=== PATIENT | male | born 1965 | race Caucasian/White ===

== ENCOUNTER → 2021-05-20 15:44 | Outpatient (CLI) | payer OTHER, SELFPAY ==
--- NOTE | ~2021-05-20 | XR_ITS ---
EXAMINATION: XR wrist RT min 3V DATE: 05/20/2021 16:02 INDICATION: Right wrist pain. TECHNIQUE: 4 views of right wrist were obtained. COMPARISON: None. FINDINGS: Bone alignment is normal. No fracture. There is mild osteoarthritis of first metacarpophala ngeal joint. IMPRESSION: 1. Mild osteoarthritis of first metacarpophalangeal joint. Reviewed, dictated and finalized at location A.
== END ==
PROVIDERS: PCP Physician Assistant; Visit Provider Physician Assistant
DX: M19.031 Primary osteoarthritis, right wrist (principal)
CPT/HCPCS: 73110

== ENCOUNTER 2021-06-07 12:41 | Outpatient (CLI) | payer OTHER, SELFPAY ==
--- NOTE | ~2021-06-07 | XR_ITS ---
XR cervical spine 4-5V DATE: 06/07/2021 13:04 INDICATION: Neck pain. Dizziness. Giddiness. TECHNIQUE: AP, open-mouth, lateral and swimmer views COMPARISON: None FINDINGS: C1 and C2 are normally aligned and the odontoid process is intact. No fracture or dislocati on or locked facet or prevertebral soft tissue swelling. There is mild degenerative disc disease at C5-6, moderate degenerative disc disease at C6-7. There is mild uncovertebral joint spurring at C3-4, C4-5, C5-6 and C6-7. IMPRESSION: Mild cervical spondylosis Reviewed, dictated and finalized at location A. IMPRESSION: Mild cervical spondylosis
--- NOTE | ~2021-06-07 | US_ITS ---
EXAMINATION: US carotid duplex BI DATE: 06/07/2021 13:23 INDICATION: Dizziness and giddiness TECHNIQUE: Grayscale, color Doppler, and pulsed Doppler images of the cervical carotid arteries were obtained. The degree of vessel stenosis is placed in one of the following categories: normal, <50%, 5 0-69%, >=70% but less than near-occlusion, near-occlusion, or total occlusion. Note that percent sten osis relative to normal distal artery lumen diameter is indirectly measured from velocity measurement s as described by Gagan, et al. Radiology 2003; [id number]. COMPARISON: None. FINDINGS: RIGHT: The right common carotid artery (CCA) peak systolic velocity (PSV) is 158 cm/s. The right internal ca rotid artery (ICA) PSV is 65 cm/s. The right ICA end-diastolic velocity (EDV) is 14 cm/s. The right I CA/CCA PSV ratio is 0.4. Grayscale and color Doppler images demonstrate no evident stenosis or plaque in the ICA. The external carotid artery (ECA) PSV is 103 cm/s. There is antegrade flow in the right vertebral artery. LEFT: The left CCA PSV is 126 cm/s. The left ICA PSV is 41 cm/s. The left ICA EDV is 18 cm/s. The left ICA/ CCA PSV ratio is 0.3. Grayscale and color Doppler images demonstrate no evident stenosis or plaque in the ICA. The ECA PSV is 88 cm/s. There is antegrade flow in the left vertebral artery. IMPRESSION: 1. No evident plaque or stenosis in the right internal carotid artery. 2. No evident plaque or stenosis in the left internal carotid artery. Reviewed, dictated and finalized at location A.
== END 2021-06-07 12:42 | disposition home or self-care (01) ==
PROVIDERS: PCP Physician Assistant; Visit Provider Physician Assistant
DX: R42 Dizziness and giddiness (principal); M47.812 Spondylosis without myelopathy or radiculopathy, cervical region
CPT/HCPCS: 72050; 93880

== ENCOUNTER → 2021-09-28 02:48 | Outpatient (CLI) | payer OTHER, SELFPAY ==
[2021-09-28 20:48] LABS: SARS-CoV-2 RNA PCR Negative
== END ==
PROVIDERS: PCP Physician Assistant; Visit Provider Physician Assistant
DX: R68.89 Other general symptoms and signs (principal); Z20.822 Contact with and (suspected) exposure to COVID-19
CPT/HCPCS: C9803; U0003; U0005

== ENCOUNTER 2024-10-04 10:00 | Outpatient (CLI) | payer OTHER, SELFPAY ==
--- NOTE | ~2024-10-04 | XR_ITS ---
XR chest 2V DATE: 10/04/2024 10:15 INDICATION: Cough TECHNIQUE: PA and lateral views COMPARISON: None FINDINGS: Normal heart size. No hilar or mediastinal enlargement. No pulmonary infiltrate or consolidation, pleural effusion or pulmonary vascular congestion or pneumo thorax is detected. IMPRESSION: No active cardiopulmonary disease Reviewed, dictated and finalized at location A. 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
== END 2024-10-04 10:01 | disposition home or self-care (01) ==
LOC: MICIMG 10:01
PROVIDERS: PCP Physician Assistant; Visit Provider Physician Assistant
DX: R05.9 Cough, unspecified (principal)
CPT/HCPCS: 71046

== ENCOUNTER 2024-10-10 14:36 | Outpatient (CLI) | payer OTHER, SELFPAY ==
--- NOTE | ~2024-10-10 | US_ITS ---
EXAMINATION: US thyroid DATE: 10/10/2024 15:27 INDICATION: Family history of thyroid cancer, abnormal thyroid labs. TECHNIQUE: Multiple ultrasound images of the thyroid were obtained. COMPARISON: None. FINDINGS: The right thyroid lobe measures 6.7 x 2.1 x 2.1 cm. The left thyroid lobe measures 5.5 x 2.1 x 1.8 c m. The isthmus measures 0.3 cm. There is normal echotexture and echogenicity throughout the thyroid g land. 1.2 cm solid, slightly hypoechoic, wider than tall, smoothly marginated superior right thyroid lobe nodule, without echogenic foci (TI-RADS 4). Normal vascular flow is present. IMPRESSION: 1.2 cm moderately suspicious superior right thyroid lobe nodule. Recommend follow-up in one year. 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 Recommend foll ow-up in one year.
== END 2024-10-10 14:37 | disposition home or self-care (01) ==
PROVIDERS: PCP Physician Assistant; Visit Provider Physician Assistant
DX: E04.1 Nontoxic single thyroid nodule (principal); Z80.8 Family history of malignant neoplasm of other organs or systems
CPT/HCPCS: 76536